=== PATIENT | female | born 1945 | race Caucasian/White ===

== ENCOUNTER 2017-02-25 15:15 | Inpatient (IN) | payer MEDICARE, MEDICAID ==
[~2017-02-25] VITALS: Ht 172.7 cm; Wt 95.9 kg
[~2017-02-25 15:15] MED LIST: GLAT20KI SC; HYDR500T13 PO; LEV500T PO; NOR10T PO; SACC250C PO; SERT-160 PO; VALIUM OR
[2017-02-25 17:57] VITALS: BP 135/79
[2017-02-25 18:40] VITALS: BP 140/83
[2017-02-25] MEDS ORDERED: cefTRIAXone 1GM/50ML D5W 50 ML IV STA (21:35)
[2017-02-25] MEDS ORDERED: NITROGLYCERIN 0.4 MG SL TAB SL PRN (21:45)
[2017-02-25] MEDS ORDERED: MOMLQ GT (21:55)
[2017-02-25 22:00] VITALS: BP 123/78
[2017-02-25 22:06] LABS: Basophils # (auto) 0 uL; Basophils % (auto) 0.2 % (0.0-2.0); CONDITION Y; Eosinophils # (auto) 0.2 uL; Eosinophils % (auto) 1.6 % (0.0-7.0); Hematocrit 37.4 % (36.0-46.0); Hemoglobin 12.4 g/dL (12.2-16.2); Lymphocytes # (auto) 1.6 uL; Mean Corpuscular Hemoglobin 29.5 pg (28.0-32.0); Mean Corpuscular Hgb Conc. 33.3 g/dL (32.0-36.0); Mean Corpuscular Volume 88.8 fL (80.0-100.0); Mean Platelet Volume 8.4 fL (7.4-10.4); Monocytes # (auto) 0.9 uL; Monocytes % (auto) 8.6 % (0.0-12.0); Neutrophils % (auto) 74.6 % (37.0-80.0); Platelet Count (auto) 239 10^3/uL (140-450); Red Cell Distribution Width 14.5 % (11.6-16.0); SUSPECT SEE PRINTOUT; White Blood Cell 10.7 10^3/uL (4.4-10.8)
[2017-02-25] MEDS ORDERED: HYDROcodone-ACET 10/325MG TAB PO PRN (22:15)
[2017-02-25 22:28] LABS: Albumin 3.4 g/dL (3.4-5.0); BUN/Creatinine Ratio 11.3; Calcium 8.6 mg/dL (8.5-10.1); Potassium 3.9 mmol/L (3.5-5.1)
[2017-02-25 22:30] LABS: Bilirubin, Total 0.3 mg/dL (0.2-1.0); Total Protein 6.8 g/dL (6.4-8.2)
[2017-02-25] MEDS: SOD CHL 0.45% 1,000 ML IV SCH (22:31)
[2017-02-26] MEDS ORDERED: BIS10RS PR (01:54)
[2017-02-26] MEDS ORDERED: ACET-1156 PO (01:56)
[2017-02-26] MEDS ORDERED: TIZA4CAP5 PO (01:58)
[2017-02-26] MEDS ORDERED: METO25TA5 PO (02:02)
[2017-02-26] MEDS ORDERED: LISI-275 PO (02:02)
[2017-02-26] MEDS ORDERED: QUET50TA PO (02:18)
[2017-02-26] MEDS ORDERED: DIA5T PO (02:18)
[2017-02-26] MEDS ORDERED: SIMV10TA84 PO (02:18)
[2017-02-26] MEDS ORDERED: DOCU100T15 PO (02:18)
[2017-02-26] MEDS ORDERED: SACC1CAP3 PO (02:20)
[2017-02-26] MEDS ORDERED: SENN8.6T15 PO (02:20)
[2017-02-26] MEDS ORDERED: ACETAMINOPHEN 325 MG TAB PO PRN (02:30)
[2017-02-26] MEDS ORDERED: BISACODYL 10 MG RECT SUPP PR PRN (02:30)
[2017-02-26] MEDS ORDERED: SENNA 8.6 MG TAB PO PRN (02:30)
[2017-02-26 04:09] LABS: Urine Bilirubin Negative (Negative); Urine Blood 1+ /uL (Negative); Urine Color Yellow (Yellow); Urine Glucose Normal (Normal); Urine Ketone 1+ (Negative); Urine Mucus FEW (None Seen); Urine Nitrite Negative (Negative); Urine RBC 29 /hpf (0 - 4); Urine Urobilinogen Normal (Negative); Urine WBC Clumps PRESENT /hpf (None Seen); Urine pH 6.5 (5.0-8.0)
[2017-02-26 05:00] VITALS: BP 90/58
[2017-02-26 09:00] VITALS: BP 137/75
[2017-02-26] MEDS ORDERED: FLORASTOR (S. BOULARDII) 250 MG CAP PO SCH (10:00)
[2017-02-26] MEDS ORDERED: DIAZEPAM 5 MG TAB PO SCH (10:00)
[2017-02-26] MEDS: FLORASTOR (S. BOULARDII) 250 MG CAP PO SCH (10:08)
[2017-02-26] MEDS: LEVOFLOXACIN 500 MG TAB PO SCH (10:08)
[2017-02-26] MEDS: cefTRIAXone 1GM/50ML D5W 50 ML IV SCH (10:08)
[2017-02-26] MEDS: LISINOPRIL 5 MG TAB PO SCH (10:09)
[2017-02-26] MEDS: MILK OF MAGNESIA 30ML SUSP PO SCH (10:09)
[2017-02-26] MEDS: METOPROLOL TARTRATE 25 MG TAB PO SCH (10:10)
[2017-02-26] MEDS: SOD CHL 0.45% 1,000 ML IV SCH ×2 (10:12→22:57)
[2017-02-26] MEDS: HYDROcodone-ACET 10/325MG TAB PO PRN ×3 (10:12→19:55)
[2017-02-26 12:14] VITALS: BP 134/71
[2017-02-26] MEDS: ONDANSETRON HCL 4 MG/2 ML VIAL IV PRN (14:45)
[2017-02-26 16:45] VITALS: BP 123/71
[2017-02-26 21:52] VITALS: BP 103/59
[2017-02-27] MEDS: HYDROcodone-ACET 10/325MG TAB PO PRN ×3 (00:25→19:38)
[2017-02-27] MEDS: DIAZEPAM 5 MG TAB PO PRN ×2 (00:25→20:20)
[2017-02-27 05:23] VITALS: BP 99/50
[2017-02-27 06:31] LABS: Basophils # (auto) 0 uL; Basophils % (auto) 0.5 % (0.0-2.0); CONDITION Y; Eosinophils # (auto) 0.3 uL; Eosinophils % (auto) 5.5 % (0.0-7.0); Hematocrit 34.7 % (36.0-46.0); Hemoglobin 11.4 g/dL (12.2-16.2); Lymphocytes # (auto) 1.6 uL; Lymphocytes % (auto) 30.3 % (10.0-50.0); Mean Corpuscular Hemoglobin 29.7 pg (28.0-32.0); Mean Corpuscular Hgb Conc. 32.9 g/dL (32.0-36.0); Mean Corpuscular Volume 90.1 fL (80.0-100.0); Mean Platelet Volume 8.1 fL (7.4-10.4); Monocytes # (auto) 0.7 uL; Monocytes % (auto) 12.6 % (0.0-12.0); Neutrophils # (auto) 2.7 uL; Neutrophils % (auto) 51.1 % (37.0-80.0); Platelet Count (auto) 263 10^3/uL (140-450); Red Cell Distribution Width 15.2 % (11.6-16.0); White Blood Cell 5.2 10^3/uL (4.4-10.8)
[2017-02-27 06:52] LABS: Potassium 4.2 mmol/L (3.5-5.1)
[2017-02-27 07:03] LABS: BUN/Creatinine Ratio 13.6; Calcium 7.8 mg/dL (8.5-10.1)
[2017-02-27 09:00] VITALS: BP 127/63
[2017-02-27] MEDS: MILK OF MAGNESIA 30ML SUSP PO SCH (10:00)
[2017-02-27] MEDS: cefTRIAXone 1GM/50ML D5W 50 ML IV SCH (10:11)
[2017-02-27] MEDS: FLORASTOR (S. BOULARDII) 250 MG CAP PO SCH (10:11)
[2017-02-27] MEDS: LEVOFLOXACIN 500 MG TAB PO SCH (10:11)
[2017-02-27] MEDS: METOPROLOL TARTRATE 25 MG TAB PO SCH (10:12)
[2017-02-27] MEDS: OXYBUTYNIN CHL 5 MG TAB PO SCH ×2 (10:12→21:37)
[2017-02-27] MEDS: LISINOPRIL 5 MG TAB PO SCH (10:12)
[2017-02-27] MEDS: SOD CHL 0.45% 1,000 ML IV SCH ×2 (11:11→23:30)
[2017-02-27 13:04] VITALS: BP 127/71
[2017-02-27] MEDS: ONDANSETRON HCL 4 MG/2 ML VIAL IV PRN (15:07)
[2017-02-27 17:00] VITALS: BP 104/60
[2017-02-27 22:00] VITALS: BP 94/59
[2017-02-28] MEDS: HYDROcodone-ACET 10/325MG TAB PO PRN ×2 (00:02→05:44)
[2017-02-28 05:31] VITALS: BP 94/61
[2017-02-28 06:13] LABS: Basophils # (auto) 0 uL; Basophils % (auto) 0.1 % (0.0-2.0); CONDITION Y; Eosinophils # (auto) 0.3 uL; Eosinophils % (auto) 5.5 % (0.0-7.0); Hemoglobin 11.3 g/dL (12.2-16.2); Lymphocytes # (auto) 1.7 uL; Lymphocytes % (auto) 26.8 % (10.0-50.0); Mean Corpuscular Hemoglobin 29.6 pg (28.0-32.0); Mean Corpuscular Hgb Conc. 33.2 g/dL (32.0-36.0); Mean Corpuscular Volume 89.2 fL (80.0-100.0); Monocytes # (auto) 0.6 uL; Neutrophils # (auto) 3.5 uL; Neutrophils % (auto) 57.6 % (37.0-80.0); Platelet Count (auto) 294 10^3/uL (140-450); Red Cell Distribution Width 15.2 % (11.6-16.0); White Blood Cell 6.2 10^3/uL (4.4-10.8)
[2017-02-28 06:28] LABS: Potassium 4.3 mmol/L (3.5-5.1)
[2017-02-28 06:33] LABS: BUN/Creatinine Ratio 13.2; Calcium 8.2 mg/dL (8.5-10.1)
[2017-02-28 09:00] VITALS: BP 119/60
[2017-02-28] MEDS: cefTRIAXone 1GM/50ML D5W 50 ML IV SCH (09:37)
[2017-02-28] MEDS: OXYBUTYNIN CHL 5 MG TAB PO SCH (09:38)
[2017-02-28] MEDS: MILK OF MAGNESIA 30ML SUSP PO SCH (09:38)
[2017-02-28] MEDS: METOPROLOL TARTRATE 25 MG TAB PO SCH (09:38)
[2017-02-28] MEDS: FLORASTOR (S. BOULARDII) 250 MG CAP PO SCH (09:38)
[2017-02-28] MEDS: LEVOFLOXACIN 500 MG TAB PO SCH (09:38)
[2017-02-28] MEDS: LISINOPRIL 5 MG TAB PO SCH (09:38)
== END 2017-02-28 21:25 | DRG 871 ==
LOC: EAST 15:15 → CENTRAL 19:14
PROVIDERS: ADMIT Internal Medicine; ATTEND Family Medicine
DX: A41.9 Sepsis, unspecified organism (principal); G82.50 Quadriplegia, unspecified; F33.9 Major depressive disorder, recurrent, unspecified; E66.01 Morbid (severe) obesity due to excess calories; N39.0 Urinary tract infection, site not specified; G35 Multiple sclerosis; E78.5 Hyperlipidemia, unspecified; I10 Essential (primary) hypertension; F41.9 Anxiety disorder, unspecified; K59.00 Constipation, unspecified; B96.5 Pseudomonas (aeruginosa) (mallei) (pseudomallei) as the cause of diseases classified elsewhere; Z88.5 Allergy status to narcotic agent; Z68.32 Body mass index [BMI] 32.0-32.9, adult; Z91.041 Radiographic dye allergy status; Z91.040 Latex allergy status; Z79.899 Other long term (current) drug therapy
CPT/HCPCS: 36415; 71010; 80048; 80053; 81001; 85025; 87040; 87081; 87086; 87088; 87186; J0696; J2405

== ENCOUNTER 2017-06-04 17:06 | Emergency (ER) | payer MEDICARE, MEDICAID ==
[~2017-06-04] VITALS: Ht 177.8 cm; Wt 90.7 kg
[~2017-06-04 17:06] MED LIST changes: +ACET-1156 PO; +BIS10RS PR; +DIA5T PO; +DOCU100T15 PO; +LISI-275 PO; +METO25TA5 PO; +MOMLQ GT; +QUET50TA PO; +SENN1TAB14 PO; +SIMV10TA84 PO; +TIZA4CAP5 PO
[2017-06-04 18:28] LABS: Basophils # (auto) 0 uL; Basophils % (auto) 0.5 % (0.0-2.0); Eosinophils # (auto) 0.3 uL; Eosinophils % (auto) 3.6 % (0.0-7.0); Hematocrit 42.3 % (36.0-46.0); Hemoglobin 13.4 g/dL (12.2-16.2); Lymphocytes # (auto) 1.6 uL; Lymphocytes % (auto) 21.3 % (10.0-50.0); Mean Corpuscular Hemoglobin 29.7 pg (28.0-32.0); Mean Corpuscular Hgb Conc. 31.6 g/dL (32.0-36.0); Mean Corpuscular Volume 93.9 fL (80.0-100.0); Mean Platelet Volume 8.1 fL (6.9-10.8); Monocytes # (auto) 0.5 uL; Neutrophils % (auto) 67.6 % (37.0-80.0); Nucleated Red Blood Cells % 0.1 %; Platelet Count (auto) 235 10^3/uL (140-450); Red Cell Distribution Width 15.7 % (11.8-14.3); White Blood Cell 7.4 10^3/uL (4.4-10.8)
[2017-06-04 18:46] LABS: Albumin 3.7 g/dL (3.4-5.0); BUN/Creatinine Ratio 15.3; Bilirubin, Total 0.4 mg/dL (0.2-1.0); Calcium 8.5 mg/dL (8.5-10.1); Potassium 4.3 mmol/L (3.5-5.1); Total Protein 7.7 g/dL (6.4-8.2)
[2017-06-04] MEDS ORDERED: SODIUM CHLORIDE 0.9% 1,000 ML IV ONE (19:00)
[2017-06-04] MEDS ORDERED: HYDROcodone-ACET 10/325MG TAB PO ONE (19:00)
[2017-06-04 19:46] LABS: Urine Bilirubin Negative (Negative); Urine Blood Negative /uL (Negative); Urine Color Yellow (Yellow); Urine Glucose Normal (Normal); Urine Ketone Negative (Negative); Urine Mucus FEW (None Seen); Urine Nitrite POSITIVE (Negative); Urine RBC 1 /hpf (0 - 4); Urine Urobilinogen Normal (Negative)
[2017-06-04 22:24] VITALS: BP 135/67
== END 2017-06-04 22:26 | disposition home or self-care (01) ==
LOC: EDBD 17:06 → ER 17:08
DX: N39.0 Urinary tract infection, site not specified (principal); T83.018A Breakdown (mechanical) of other urinary catheter, initial encounter; I12.9 Hypertensive chronic kidney disease with stage 1 through stage 4 chronic kidney disease, or unspecified chronic kidney disease; N18.9 Chronic kidney disease, unspecified; G35 Multiple sclerosis; Z88.5 Allergy status to narcotic agent; Z91.041 Radiographic dye allergy status; Z91.040 Latex allergy status
CPT/HCPCS: 36415; 51702; 74176; 80053; 81001; 85025; 93005; 96360; 99285; J7030

== ENCOUNTER 2018-04-16 10:21 | Inpatient (IN) | payer MEDICARE, MEDICAID ==
[~2018-04-16] VITALS: Ht 172.7 cm; Wt 95.1 kg
[~2018-04-16 10:21] MED LIST changes: +TIZA4CAP PO; -TIZA4CAP5 PO
[2018-04-16 12:00] VITALS: BP 126/63
[2018-04-16] MEDS ORDERED: NITROGLYCERIN 0.4 MG SL TAB SL PRN (12:30)
[2018-04-16] MEDS ORDERED: CALCIUM CARB 500 MG CHEW TAB PO PRN (12:45)
[2018-04-16] MEDS ORDERED: MILK OF MAGNESIA 30ML SUSP PO PRN (12:45)
[2018-04-16] MEDS ORDERED: ARTIFICIAL TEARS 15ml EACHEYE PRN (12:45)
[2018-04-16] MEDS ORDERED: HYDROcodone-ACET 5/325MG TAB PO PRN (12:45)
[2018-04-16] MEDS ORDERED: cloNIDine HCL 0.1 MG TAB PO PRN (12:45)
[2018-04-16] MEDS ORDERED: DIAZEPAM 2 MG TAB PO PRN (12:45)
[2018-04-16 13:00] VITALS: BP 126/63
[2018-04-16 13:42] LABS: Basophils # (auto) 0 uL; Basophils % (auto) 0.4 % (0.0-2.0); Eosinophils # (auto) 0.2 uL; Eosinophils % (auto) 4.5 % (0.0-7.0); Hematocrit 37.9 % (36.0-46.0); Hemoglobin 12.5 g/dL (12.2-16.2); Lymphocytes % (auto) 21.8 % (10.0-50.0); Mean Corpuscular Hemoglobin 29.4 pg (28.0-32.0); Mean Corpuscular Volume 88.8 fL (80.0-100.0); Monocytes # (auto) 0.3 uL; Monocytes % (auto) 7.6 % (0.0-12.0); Neutrophils % (auto) 65.7 % (37.0-80.0); Nucleated Red Blood Cells % 0.1 %; Platelet Count (auto) 263 10^3/uL (140-450); Red Blood Cells 4.26 10^6/uL (4.0-5.20); White Blood Cell 4.6 10^3/uL (4.4-10.8)
[2018-04-16 14:06] LABS: Albumin 3.3 g/dL (3.4-5.0); Calcium 8.4 mg/dL (8.5-10.1); Potassium 4.1 mmol/L (3.5-5.1)
[2018-04-16 14:09] LABS: BUN/Creatinine Ratio 7.9; Bilirubin, Total 0.3 mg/dL (0.2-1.0); Total Protein 6.9 g/dL (6.4-8.2)
[2018-04-16] MEDS: SODIUM CHLORIDE 0.9% 1,000 ML IV SCH (14:39)
[2018-04-16 15:43] LABS: Urine Amorphous Crystal FEW /hpf (None Seen); Urine Bacteria FEW /hpf (None Seen); Urine Blood Negative /uL (Negative); Urine Mucus FEW (None Seen); Urine Specific Gravity 1.005 (1.001-1.035); Urine WBC 9 /hpf (0 - 5)
[2018-04-16 17:00] VITALS: BP 129/74
[2018-04-16] MEDS ORDERED: cefTRIAXone 1GM/50ML D5W 50 ML IV ONE (18:15)
[2018-04-16] MEDS ORDERED: OXYB15TA12 PO (19:22)
[2018-04-16] MEDS ORDERED: SACC1CAP3 PO (19:22)
[2018-04-16] MEDS ORDERED: MULTTAB61 PO (19:22)
[2018-04-16] MEDS ORDERED: ASCO500T11 PO (19:22)
[2018-04-16] MEDS ORDERED: DOCU100T15 PO (19:22)
[2018-04-16] MEDS ORDERED: CALC500C3 PO (19:26)
[2018-04-16] MEDS ORDERED: MOMLQ PO (19:26)
[2018-04-16] MEDS ORDERED: SERT-138 PO (19:26)
[2018-04-16] MEDS ORDERED: LORazepam 2MG/ML-1ML VIAL IV PRN (19:30)
[2018-04-16 20:00] VITALS: BP 108/59
[2018-04-16] MEDS: DOCUSATE SOD 100 MG CAP PO SCH (22:00)
[2018-04-16] MEDS: FLORASTOR (S. BOULARDII) 250 MG CAP PO SCH (22:00)
[2018-04-16] MEDS: TIZANIDINE 4 MG PO SCH (22:00)
[2018-04-16] MEDS: GLATIRAMER 20 MG/ML SC SCH (22:00)
[2018-04-16] MEDS: PRAVASTATIN SODIUM 20 MG TAB PO SCH (22:00)
[2018-04-16] MEDS: OXYBUTYNIN CHL 5 MG TAB PO SCH (22:00)
[2018-04-16] MEDS: SENNA 8.6 MG TAB PO SCH (22:01)
[2018-04-16 22:12] VITALS: BP 108/59
[2018-04-16] MEDS: HYDROcodone-ACET 10/325MG TAB PO PRN (23:01)
[2018-04-17] MEDS: SODIUM CHLORIDE 0.9% 1,000 ML IV SCH ×4 (00:07→20:22)
[2018-04-17 05:00] VITALS: BP 134/78
[2018-04-17 05:04] LABS: Basophils # (auto) 0 uL; Basophils % (auto) 0.7 % (0.0-2.0); Eosinophils # (auto) 0.2 uL; Eosinophils % (auto) 4.4 % (0.0-7.0); Hematocrit 36.5 % (36.0-46.0); Hemoglobin 11.9 g/dL (12.2-16.2); Lymphocytes # (auto) 1.6 uL; Lymphocytes % (auto) 32.3 % (10.0-50.0); Mean Corpuscular Hemoglobin 28.9 pg (28.0-32.0); Mean Corpuscular Hgb Conc. 32.6 g/dL (32.0-36.0); Mean Corpuscular Volume 88.5 fL (80.0-100.0); Monocytes # (auto) 0.4 uL; Monocytes % (auto) 7.8 % (0.0-12.0); Neutrophils # (auto) 2.7 uL; Neutrophils % (auto) 54.8 % (37.0-80.0); Platelet Count (auto) 271 10^3/uL (140-450); Red Blood Cells 4.12 10^6/uL (4.0-5.20); White Blood Cell 4.9 10^3/uL (4.4-10.8)
[2018-04-17 05:23] LABS: Albumin 3.1 g/dL (3.4-5.0); Potassium 4.1 mmol/L (3.5-5.1)
[2018-04-17 05:27] LABS: BUN/Creatinine Ratio 10.8; Bilirubin, Total 0.3 mg/dL (0.2-1.0); Total Protein 6.4 g/dL (6.4-8.2)
[2018-04-17 08:17] VITALS: BP 141/88
[2018-04-17 08:20] VITALS: BP 141/88
[2018-04-17] MEDS: cefTRIAXone 1GM/50ML D5W 50 ML IV SCH (09:22)
[2018-04-17] MEDS: FLORASTOR (S. BOULARDII) 250 MG CAP PO SCH ×2 (09:23→21:27)
[2018-04-17] MEDS: DOCUSATE SOD 100 MG CAP PO SCH ×2 (09:24→21:27)
[2018-04-17] MEDS: ASCORBIC ACID 500 MG TAB PO SCH (09:24)
[2018-04-17] MEDS: SERTRALINE HCL 50 MG TAB PO SCH (09:24)
[2018-04-17] MEDS: MULTIPLE VITAMIN TAB PO SCH (09:24)
[2018-04-17] MEDS: OXYBUTYNIN CHL 5 MG TAB PO SCH ×2 (09:25→21:27)
[2018-04-17] MEDS: METOPROLOL TARTRATE 25 MG TAB PO SCH (09:26)
[2018-04-17] MEDS: LISINOPRIL 5 MG TAB PO SCH (09:26)
[2018-04-17] MEDS: HYDROcodone-ACET 10/325MG TAB PO PRN ×3 (09:31→21:28)
[2018-04-17 12:51] VITALS: BP 124/79
[2018-04-17 16:37] VITALS: BP 156/71
[2018-04-17] MEDS: ACETAMINOPHEN 500 MG TAB PO PRN (20:20)
[2018-04-17] MEDS: PRAVASTATIN SODIUM 20 MG TAB PO SCH (21:27)
[2018-04-17] MEDS: SENNA 8.6 MG TAB PO SCH (21:27)
[2018-04-17] MEDS: TIZANIDINE 4 MG PO SCH (21:31)
[2018-04-17] MEDS: GLATIRAMER 20 MG/ML SC SCH (21:31)
[2018-04-17 21:48] VITALS: BP 158/107
[2018-04-18] VITALS (7 sets, daily range): BP systolic 123–141; BP diastolic 60–99
[2018-04-18] MEDS: HYDROcodone-ACET 10/325MG TAB PO PRN ×3 (04:40→20:13)
[2018-04-18 04:44] LABS: Basophils # (auto) 0 uL; Basophils % (auto) 0.7 % (0.0-2.0); Eosinophils # (auto) 0.3 uL; Eosinophils % (auto) 5.1 % (0.0-7.0); Hemoglobin 11.6 g/dL (12.2-16.2); Lymphocytes # (auto) 1.6 uL; Lymphocytes % (auto) 32.8 % (10.0-50.0); Mean Corpuscular Hgb Conc. 34.2 g/dL (32.0-36.0); Mean Corpuscular Volume 87.7 fL (80.0-100.0); Monocytes # (auto) 0.4 uL; Neutrophils # (auto) 2.6 uL; Neutrophils % (auto) 52.4 % (37.0-80.0); Nucleated Red Blood Cells % 0.1 %; Platelet Count (auto) 236 10^3/uL (140-450); Red Blood Cells 3.88 10^6/uL (4.0-5.20); Red Cell Distribution Width 14.7 % (11.8-14.3); White Blood Cell 4.9 10^3/uL (4.4-10.8)
[2018-04-18 05:00] LABS: Albumin 2.9 g/dL (3.4-5.0); Calcium 7.9 mg/dL (8.5-10.1)
[2018-04-18 05:03] LABS: BUN/Creatinine Ratio 13.3; Bilirubin, Total 0.3 mg/dL (0.2-1.0)
[2018-04-18] MEDS: ASCORBIC ACID 500 MG TAB PO SCH (09:06)
[2018-04-18] MEDS: OXYBUTYNIN CHL 5 MG TAB PO SCH ×2 (09:06→22:24)
[2018-04-18] MEDS: FLORASTOR (S. BOULARDII) 250 MG CAP PO SCH ×2 (09:06→22:24)
[2018-04-18] MEDS: SERTRALINE HCL 50 MG TAB PO SCH (09:06)
[2018-04-18] MEDS: cefTRIAXone 1GM/50ML D5W 50 ML IV SCH (09:06)
[2018-04-18] MEDS: LISINOPRIL 5 MG TAB PO SCH (09:22)
[2018-04-18] MEDS: METOPROLOL TARTRATE 25 MG TAB PO SCH (09:22)
[2018-04-18] MEDS: MULTIPLE VITAMIN TAB PO SCH (09:23)
[2018-04-18] MEDS: DOCUSATE SOD 100 MG CAP PO SCH ×2 (09:23→22:23)
[2018-04-18] MEDS: SODIUM CHLORIDE 0.9% 1,000 ML IV SCH (14:45)
[2018-04-18] MEDS: GLATIRAMER 20 MG/ML SC SCH (21:44)
[2018-04-18] MEDS: TIZANIDINE 4 MG PO SCH (21:44)
[2018-04-18] MEDS: PRAVASTATIN SODIUM 20 MG TAB PO SCH (22:24)
[2018-04-18] MEDS: SENNA 8.6 MG TAB PO SCH (22:24)
[2018-04-19] MEDS: SODIUM CHLORIDE 0.9% 1,000 ML IV SCH ×3 (00:45→14:40)
[2018-04-19] MEDS: HYDROcodone-ACET 10/325MG TAB PO PRN ×4 (04:38→23:06)
[2018-04-19 05:03] LABS: Basophils # (auto) 0 uL; Basophils % (auto) 0.3 % (0.0-2.0); Eosinophils # (auto) 0.3 uL; Eosinophils % (auto) 4.2 % (0.0-7.0); Hematocrit 34.1 % (36.0-46.0); Hemoglobin 11.3 g/dL (12.2-16.2); Lymphocytes # (auto) 1.3 uL; Lymphocytes % (auto) 22.4 % (10.0-50.0); Mean Corpuscular Hemoglobin 29.3 pg (28.0-32.0); Mean Corpuscular Hgb Conc. 33.1 g/dL (32.0-36.0); Mean Corpuscular Volume 88.3 fL (80.0-100.0); Monocytes # (auto) 0.5 uL; Neutrophils # (auto) 3.9 uL; Neutrophils % (auto) 65.1 % (37.0-80.0); Nucleated Red Blood Cells % 0.1 %; Platelet Count (auto) 244 10^3/uL (140-450); Red Blood Cells 3.86 10^6/uL (4.0-5.20); Red Cell Distribution Width 14.9 % (11.8-14.3)
[2018-04-19 05:24] LABS: Potassium 3.9 mmol/L (3.5-5.1)
[2018-04-19 05:37] LABS: Albumin 2.8 g/dL (3.4-5.0); BUN/Creatinine Ratio 9.3; Bilirubin, Total 0.2 mg/dL (0.2-1.0); Calcium 7.9 mg/dL (8.5-10.1); Total Protein 5.9 g/dL (6.4-8.2)
[2018-04-19 05:38] VITALS: BP 136/69
[2018-04-19 09:32] VITALS: BP 157/79
[2018-04-19] MEDS: SERTRALINE HCL 50 MG TAB PO SCH (10:22)
[2018-04-19] MEDS: DOCUSATE SOD 100 MG CAP PO SCH ×2 (10:22→21:37)
[2018-04-19] MEDS: FLORASTOR (S. BOULARDII) 250 MG CAP PO SCH ×2 (10:22→21:37)
[2018-04-19] MEDS: ASCORBIC ACID 500 MG TAB PO SCH (10:22)
[2018-04-19] MEDS: cefTRIAXone 1GM/50ML D5W 50 ML IV SCH (10:22)
[2018-04-19] MEDS: MULTIPLE VITAMIN TAB PO SCH (10:22)
[2018-04-19] MEDS: OXYBUTYNIN CHL 5 MG TAB PO SCH ×2 (10:22→21:37)
[2018-04-19] MEDS: METOPROLOL TARTRATE 25 MG TAB PO SCH (10:23)
[2018-04-19] MEDS: LISINOPRIL 5 MG TAB PO SCH (10:23)
[2018-04-19 13:00] VITALS: BP 129/65
[2018-04-19] MEDS ORDERED: GADOPENTETATE DIMEGLUMINE (10MMOL/20 ML) VIAL IV ONE (13:05)
[2018-04-19] MEDS: MEROPENEM 500MG IVPB 50 ML IV SCH ×2 (14:39→21:36)
[2018-04-19 17:16] VITALS: BP 132/91
[2018-04-19] MEDS: PRAVASTATIN SODIUM 20 MG TAB PO SCH (21:37)
[2018-04-19] MEDS: TIZANIDINE 4 MG PO SCH (21:37)
[2018-04-19] MEDS: SENNA 8.6 MG TAB PO SCH (21:37)
[2018-04-19] MEDS: ACETAMINOPHEN 500 MG TAB PO PRN (21:45)
[2018-04-19 22:00] VITALS: BP 129/67
[2018-04-20] MEDS: ACETAMINOPHEN 500 MG TAB PO PRN ×2 (04:17→09:53)
[2018-04-20 05:00] VITALS: BP 129/72
[2018-04-20] MEDS: HYDROcodone-ACET 10/325MG TAB PO PRN ×3 (05:22→18:48)
[2018-04-20] MEDS: MEROPENEM 500MG IVPB 50 ML IV SCH ×3 (05:22→21:42)
[2018-04-20] MEDS: SODIUM CHLORIDE 0.9% 1,000 ML IV SCH ×2 (05:23→18:50)
[2018-04-20 09:00] VITALS: BP 144/77
[2018-04-20] MEDS: SERTRALINE HCL 50 MG TAB PO SCH (09:50)
[2018-04-20] MEDS: FLORASTOR (S. BOULARDII) 250 MG CAP PO SCH ×2 (09:50→21:42)
[2018-04-20] MEDS: DOCUSATE SOD 100 MG CAP PO SCH ×2 (09:50→21:43)
[2018-04-20] MEDS: MULTIPLE VITAMIN TAB PO SCH (09:51)
[2018-04-20] MEDS: METOPROLOL TARTRATE 25 MG TAB PO SCH (09:51)
[2018-04-20] MEDS: OXYBUTYNIN CHL 5 MG TAB PO SCH ×2 (09:52→21:43)
[2018-04-20] MEDS: LISINOPRIL 5 MG TAB PO SCH (09:52)
[2018-04-20] MEDS: ASCORBIC ACID 500 MG TAB PO SCH (09:52)
[2018-04-20] MEDS: GLATIRAMER 20 MG/ML SC SCH (10:00)
[2018-04-20 13:00] VITALS: BP 138/82
[2018-04-20 16:40] VITALS: BP 136/80
[2018-04-20] MEDS: PRAVASTATIN SODIUM 20 MG TAB PO SCH (21:43)
[2018-04-20] MEDS: TIZANIDINE 4 MG PO SCH (21:43)
[2018-04-20] MEDS: SENNA 8.6 MG TAB PO SCH (21:43)
[2018-04-20 21:49] VITALS: BP 129/70
[2018-04-21] MEDS: HYDROcodone-ACET 10/325MG TAB PO PRN ×4 (01:25→23:06)
[2018-04-21 05:00] VITALS: BP 122/70
[2018-04-21] MEDS: MEROPENEM 500MG IVPB 50 ML IV SCH ×3 (05:22→22:00)
[2018-04-21] MEDS: SODIUM CHLORIDE 0.9% 1,000 ML IV SCH ×3 (05:26→22:51)
[2018-04-21 09:00] VITALS: BP 127/73
[2018-04-21] MEDS: FLORASTOR (S. BOULARDII) 250 MG CAP PO SCH ×2 (09:08→22:53)
[2018-04-21] MEDS: ASCORBIC ACID 500 MG TAB PO SCH (09:08)
[2018-04-21] MEDS: SERTRALINE HCL 50 MG TAB PO SCH (09:08)
[2018-04-21] MEDS: DOCUSATE SOD 100 MG CAP PO SCH ×2 (09:08→22:51)
[2018-04-21] MEDS: OXYBUTYNIN CHL 5 MG TAB PO SCH ×2 (09:08→22:53)
[2018-04-21] MEDS: MULTIPLE VITAMIN TAB PO SCH (09:09)
[2018-04-21] MEDS: LISINOPRIL 5 MG TAB PO SCH (09:11)
[2018-04-21] MEDS: METOPROLOL TARTRATE 25 MG TAB PO SCH (09:11)
[2018-04-21] MEDS: GLATIRAMER 20 MG/ML SC SCH (10:00)
[2018-04-21 12:00] VITALS: BP 146/88
[2018-04-21 16:39] VITALS: BP 127/73
[2018-04-21 20:00] VITALS: BP 142/98
[2018-04-21 21:30] VITALS: BP 142/98
[2018-04-21] MEDS: TIZANIDINE 4 MG PO SCH (22:00)
[2018-04-21] MEDS: SENNA 8.6 MG TAB PO SCH (22:50)
[2018-04-21] MEDS: PRAVASTATIN SODIUM 20 MG TAB PO SCH (22:53)
== END 2018-04-21 23:35 | DRG 689 ==
LOC: CENTRAL 12:19
PROVIDERS: ADMIT Internal Medicine; ATTEND Internal Medicine
DX: N39.0 Urinary tract infection, site not specified (principal); G92 Toxic encephalopathy; G35 Multiple sclerosis; E11.9 Type 2 diabetes mellitus without complications; I10 Essential (primary) hypertension; N76.5 Ulceration of vagina; E66.9 Obesity, unspecified; E78.00 Pure hypercholesterolemia, unspecified; E78.5 Hyperlipidemia, unspecified; F32.9 Major depressive disorder, single episode, unspecified; F41.9 Anxiety disorder, unspecified; K59.00 Constipation, unspecified; Z87.440 Personal history of urinary (tract) infections; Z99.3 Dependence on wheelchair; Z79.899 Other long term (current) drug therapy; Z68.31 Body mass index [BMI] 31.0-31.9, adult
CPT/HCPCS: 36415; 70553; 80053; 81001; 83605; 85025; 87081; 87086; 87088; 87186; 97110; 97163; G0378; J0696; J2185